=== PATIENT | male | born 1955 | race Caucasian/White ===

== ENCOUNTER 2017-02-08 07:01 | Day surgery (SDC) | payer BC ==
[2017-02-08] MEDS ORDERED: Lactated Ringers 1,000 ML IV SCH (07:45)
[2017-02-08] MEDS ORDERED: Propofol 200 MG/20 ML SDV ONE (08:54)
[2017-02-08] MEDS ORDERED: Midazolam 1 MG/ML 2 ML SDV ONE (08:54)
[2017-02-08] MEDS ORDERED: fentaNYL 100 MCG/2 ML SDV ONE (08:54)
[2017-02-08 10:15] VITALS: BP 100/61
--- NOTE | 2017-02-09 11:34 | OR ---
DATE OF PROCEDURE: 02/08/2017 PREOPERATIVE DIAGNOSIS: Change in bowel habits. POSTOPERATIVE DIAGNOSIS: Diverticulosis, change in bowel habits, etiology unknown. PROCEDURE: Colonoscopy to the cecum. ANESTHESIA: IV anesthesia with monitored anesthesia care. INDICATIONS: This 61-year-old white male is referred for a colonoscopy because of a change in his bowel habits. He says his last colonoscopic exam was done five years ago. I counseled him for the procedure including risks and alternatives, and he gave his informed consent to proceed. DESCRIPTION OF PROCEDURE: The patient was placed in the left lateral decubitus position. IV anesthesia was administered by the Anesthesia Service. Time-out was held. A rectal exam was performed, which was unremarkable. The flexible video Olympus colonoscope was introduced through his anus, up his rectum, and out his colon all the way to the cecum. En route, we saw multiple left-sided diverticula. There was no bleeding or inflammation associated with any of them. Once the cecum was reached, the scope was slowly withdrawn examining the mucosa throughout. No additional mucosal abnormalities were noted. No neoplastic lesions were seen. The scope was retroflexed in the rectum with the distal rectum appearing unremarkable. The scope was straightened and removed. He tolerated the procedure well. Henri Jackson MD /[id number]
== END 2017-02-08 10:17 | disposition home or self-care (01) ==
LOC: JP.SDS 07:01
PROVIDERS: ATTEND Surgery
DX: Z12.11 Encounter for screening for malignant neoplasm of colon (principal); K57.30 Diverticulosis of large intestine without perforation or abscess without bleeding; I10 Essential (primary) hypertension; E66.9 Obesity, unspecified; K21.9 Gastro-esophageal reflux disease without esophagitis; Z88.8 Allergy status to other drugs, medicaments and biological substances
CPT/HCPCS: 45378; J2250; J2704; J3010; J7120

== ENCOUNTER 2017-09-01 04:00 | Emergency (ER) | payer BC ==
[2017-09-01 04:24] VITALS: BP 130/74
[2017-09-01] MEDS ORDERED: Ketorolac 30 MG/ML SDV IM ONE (04:24)
[2017-09-01] MEDS ORDERED: Ciprofloxacin 500 MG Tab PO ONE (05:23)
[2017-09-01] MEDS ORDERED: metroNIDAZOLE 250 MG Tab PO ONE (05:23)
--- NOTE | 2017-09-01 05:34 | EDM.PDOC ---
ED HPI GENERAL MEDICAL PROBLEM - General Chief Complaint: Abdominal Pain Stated Complaint: PAIN Time Seen by Provider: 09/01/17 05:10 Source of Information: Reports: Patient, Old Records History Limitations: Reports: No Limitations - History of Present Illness INITIAL COMMENTS - FREE TEXT/NARRATIVE: 62 yo male here with LLQ abdominal pain that began within the last 12 hrs. No fever. Pain worse with movement. Has a pHx of diverticulitis. Onset Date: 08/31/17 Duration: Hour(s):, Getting Worse Location: Reports: Abdomen Quality: Reports: Ache Severity: Moderate Improves with: Reports: None Worsens with: Reports: Other (time) Context: Reports: Other (Hx of diverticulitis) Associated Symptoms: Reports: No Other Symptoms Treatments HOT OILER: Reports: Other (see below) (none) LLQ pain Pain Score (Numeric/FACES): 5 - Related Data Allergies Allergy/AdvReac Type Severity Reaction Status Date / Time guaifenesin Allergy Vomiting Verified 09/01/17 04:09 hylan G-F 20 [From [facility] [employer]] Allergy Paralysis Verified 09/01/17 04:09 oxycodone Allergy Change Verified 09/01/17 04:09 Mental Status Home Meds: Home Meds Ibuprofen 400 mg PO BID PRN 02/06/17 [History] Sildenafil Citrate [Sildenafil] 25 mg PO DAILY PRN 02/06/17 [History] Sodium Fluoride [Prevident] 1 applic TOP BEDTIME 02/06/17 [History] Tamsulosin [Tamsulosin 24 Hr] 0.8 mg PO DAILY 02/06/17 [History] Terbinafine [LamISIL] 250 mg PO DAILY 02/06/17 [History] amLODIPine [Norvasc] 10 mg PO DAILY 02/06/17 [History] Acetaminophen/HYDROcodone [[place] 325-5 MG] 1 - 2 tab PO Q6H PRN #14 tab [Rx] Ciprofloxacin [Ciprofloxacin HCl] 500 mg PO BID #19 tab 09/01/17 [Rx] metroNIDAZOLE [Flagyl] 500 mg PO TID #29 tablet 09/01/17 [Rx] Past Medical History HEENT History: Reports: Impaired Vision Cardiovascular History: Reports: Hypertension Gastrointestinal History: Reports: None Genitourinary History: Reports: BPH Musculoskeletal History: Reports: None Endocrine/Metabolic History: Reports: Obesity/BMI 30+ - Infectious Disease History Infectious Disease History: Reports: Chicken Pox - Past Surgical History GI Surgical History: Reports: Colonoscopy Male Surgical History: Reports: Other (See Below) Other Male Surgeries/Procedures: polyp removed from bladder Musculoskeletal Surgical History: Reports: Knee Replacement Social & Family History - Tobacco Use Smoking Status *Q: Never Smoker - Caffeine Use Caffeine Use: Reports: Soda - Recreational Drug Use Recreational Drug Use: No ED ROS GENERAL - Review of Systems Review Of Systems: See Below Constitutional: Reports: No Symptoms HEENT: Reports: No Symptoms Respiratory: Reports: No Symptoms Cardiovascular: Reports: No Symptoms GI/Abdominal: Reports: Abdominal Pain, Decreased Appetite. Denies: Black Stool , Bloody Stool, Constipation, Diarrhea, Distension, Hematemesis, Hematochezia, Melena, Nausea, Vomiting : Reports: No Symptoms Musculoskeletal: Reports: No Symptoms Skin: Reports: No Symptoms Neurological: Reports: No Symptoms ED EXAM, GI/ABD - Physical Exam Exam: See Below Exam Limited By: No Limitations General Appearance: Alert, WD/WN, No Apparent Distress, Obese Eyes: Bilateral: Normal Appearance Ears: Normal External Exam, Normal Canal, Hearing Grossly Normal Nose: Normal Inspection, Normal Mucosa, No Blood Throat/Mouth: Normal Inspection, Normal Lips, Normal Teeth, Normal Oropharynx, Normal Voice, No Airway Compromise Head: Atraumatic, Normocephalic Neck: Normal Inspection, Supple, Non-Tender Respiratory/Chest: No Respiratory Distress, Lungs Clear, Normal Breath Sounds, No Accessory Muscle Use Cardiovascular: Regular Rate, Rhythm, No Edema GI/Abdominal Exam: Normal Bowel Sounds, Soft, No Distention, Guarding (mild), Rebound (mild), Tender (LLQ) (Male) Exam: No Hernia Back Exam: Normal Inspection. No: CVA Tenderness (R), CVA Tenderness (L) Extremities: Normal Inspection, Normal Range of Motion, Non-Tender, No Pedal Edema Neurological: Alert, Oriented, CN II-XII Intact, Normal Cognition, No Motor/ Sensory Deficits Psychiatric: Normal Affect, Normal Mood Skin Exam: Warm, Dry, Intact, Normal Color, No Rash Lymphatic: No Adenopathy Course - Vital Signs Last Recorded V/S: Last Vital Signs Temp 37.0 C 09/01/17 04:24 Pulse 81 09/01/17 04:24 Resp 18 09/01/17 04:24 BP 130/74 12/15/17 04:24 Pulse Ox 95 09/01/17 04:24 - Orders/Labs/Meds Labs: Laboratory Tests 09/01/17 09/01/17 Range/Units 04:58 04:58 WBC 17.2 H (4.5-11.0) K/uL RBC 5.35 (4.30-5.90) M/uL Hgb 15.7 H (12.0-15.0) g/dL Hct 47.9 (40.0-54.0) % MCV 90 (80-98) fL MCH 29 (27-31) pg MCHC 33 (32-36) % Plt Count 246 (150-400) K/uL C-Reactive Protein 3.20 H (0.0-0.3) mg/dL Meds: Medications Discontinued Medications Generic Name Dose Route Start Last Admin Trade Name Freq PRN Reason Stop Dose Admin Ciprofloxacin 500 mg 09/01/17 05:23 Ciprofloxacin Hcl PO 09/01/17 05:24 ONETIME ONE Ketorolac Tromethamine 30 mg 09/01/17 04:24 09/01/17 04:33 Toradol IM 09/01/17 04:25 30 mg ONETIME ONE Administration Metronidazole 500 mg 09/01/17 05:23 Metronidazole PO 09/01/17 05:24 ONETIME ONE Departure - Departure Time of Disposition: 05:33 Disposition: Home, Self-Care 01 Condition: Fair Clinical Impression: Diverticulitis - Discharge Information Prescriptions: Acetaminophen/HYDROcodone [[place] 325-5 MG] 1 - 2 tab PO Q6H PRN #14 tab PRN Reason: Pain Ciprofloxacin [Ciprofloxacin HCl] 500 mg PO BID #19 tab metroNIDAZOLE [Flagyl] 500 mg PO TID #29 tablet Referrals: PCP,None [Primary Care Provider] - Forms: ED Department Discharge Additional Instructions: Take ciprofloxacin and metronidazole as directed until gone. Use ibuprofen and/ or acetaminophen as needed for pain relief. Substitute [place] for the acetaminophen if additional relief is needed. Recheck in the clinic early next week, return if worse in the interim. Eat a light diet.
== END 2017-09-01 05:43 | disposition home or self-care (01) ==
LOC: JP.ED 04:00
DX: K57.92 Diverticulitis of intestine, part unspecified, without perforation or abscess without bleeding (principal); I10 Essential (primary) hypertension; Z79.899 Other long term (current) drug therapy; Z88.6 Allergy status to analgesic agent; Z88.8 Allergy status to other drugs, medicaments and biological substances
CPT/HCPCS: 36415; 85027; 86140; 96372; 99284; A9270; J1885

== ENCOUNTER 2022-03-04 13:28 | Emergency (ER) | payer BC ==
[2022-03-04] MEDS ORDERED: Ondansetron 4 MG/2 ML SDV IVPUSH ONE (14:22)
[2022-03-04] MEDS ORDERED: Sodium Chloride 0.9% 10 ML Syringe FLUSH PRN (14:22)
[2022-03-04 14:41] LABS: CORONAVIRUS COVID-19 NAA NEGATIVE (NEGATIVE)
[2022-03-04 14:42] VITALS: PULSE 58
[2022-03-04 15:03] LABS: ESTIMATED GFR 94 mL/min (>60); TROPONIN I HIGH SENSITIVITY 22.4 pg/mL (<=60.3)
[2022-03-04] MEDS ORDERED: Ketorolac 30 MG/ML SDV IVPUSH ONE (15:28)
[2022-03-04] MEDS ORDERED: Sodium Chloride 0.9% 75 ML IV SCH (15:45)
[2022-03-04] MEDS ORDERED: Iopamidol 612 MG/ML 100 ML Bottle IV SCH (15:45)
[2022-03-04 16:11] VITALS: BP 153/84
[2022-03-04] MEDS ORDERED: Sodium Chloride 0.9% 1,000 ML IV SCH (16:15)
== END 2022-03-04 17:48 | disposition home or self-care (01) ==
LOC: JP.ED 13:28
DX: B34.9 Viral infection, unspecified (principal); I10 Essential (primary) hypertension; E78.00 Pure hypercholesterolemia, unspecified; E66.9 Obesity, unspecified; Z68.36 Body mass index [BMI] 36.0-36.9, adult; Z20.822 Contact with and (suspected) exposure to COVID-19; Z88.8 Allergy status to other drugs, medicaments and biological substances
CPT/HCPCS: 0241U; 36415; 71046; 71260; 80053; 81001; 82150; 83690; 83880; 84484; 85025; 85379; 93005; 93010; 96361; 96374; 96375; 99284; J1885; J2405; J3490; J7030

== ENCOUNTER 2022-05-06 07:01 | Day surgery (SDC) | payer BC ==
[~2022-05-06 07:01] MED LIST: Bupivacaine 0.5% 50 ML MDV ONE; Lidocaine 1% with EPINEPHrine 1:100,000 50 ML MDV ONE
[2022-05-06] MEDS ORDERED: Acetaminophen 500 MG Tab PO ONE (07:30)
[2022-05-06] MEDS ORDERED: Dextrose 5%-Lactated Ringers 1,000 ML IV SCH (07:45)
[2022-05-06] MEDS ORDERED: fentaNYL 250 MCG/5 ML SDV ONE ×2 (08:15→10:35)
[2022-05-06] MEDS ORDERED: cefOXitin 2 GM in Sodium Chloride 0.9% 50 ML IV ONE (08:45)
[2022-05-06] MEDS ORDERED: Succinylcholine 200 MG/10 ML MDV ONE (08:46)
[2022-05-06] MEDS ORDERED: Glycopyrrolate 0.2 MG/ML 5 ML MDV ONE (08:46)
[2022-05-06] MEDS ORDERED: Neostigmine Methylsulfate 1 MG/ML 5 ML Syringe ONE (08:46)
[2022-05-06] MEDS ORDERED: Ondansetron 4 MG/2 ML SDV ONE (08:46)
[2022-05-06] MEDS ORDERED: Rocuronium 50 MG/5 ML Vial ONE (08:46)
[2022-05-06] MEDS ORDERED: Propofol 200 MG/20 ML SDV ONE (08:46)
[2022-05-06] MEDS ORDERED: Dexamethasone 4 MG/ML SDV ONE (08:46)
[2022-05-06] MEDS ORDERED: Ketamine 500 MG/5 ML MDV IV SCH (09:00)
[2022-05-06] MEDS ORDERED: Ketamine 20 MG in Sodium Chloride 0.9% 19.8 ML IV SCH (09:00)
[2022-05-06] MEDS ORDERED: Meropenem 500 MG SDV ONE (11:25)
[2022-05-06] MEDS ORDERED: Ketorolac 30 MG/ML SDV ONE (11:27)
[2022-05-06] MEDS ORDERED: HYDROmorphone 2 MG Tab PO PRN (15:08)
[2022-05-06 15:36] VITALS: BP 116/65; PULSE 65
[2022-05-06] MEDS ORDERED: Ondansetron 4 MG Tab.DIS PO ONE (15:49)
== END 2022-05-06 16:33 | disposition home or self-care (01) ==
LOC: JP.SDS 07:01
PROVIDERS: ATTEND Surgery
DX: K80.10 Calculus of gallbladder with chronic cholecystitis without obstruction (principal); K42.0 Umbilical hernia with obstruction, without gangrene; I10 Essential (primary) hypertension; M17.0 Bilateral primary osteoarthritis of knee; E78.5 Hyperlipidemia, unspecified; E66.01 Morbid (severe) obesity due to excess calories; K21.9 Gastro-esophageal reflux disease without esophagitis; Z98.890 Other specified postprocedural states; Z96.643 Presence of artificial hip joint, bilateral; Z88.6 Allergy status to analgesic agent; Z88.8 Allergy status to other drugs, medicaments and biological substances; Z79.02 Long term (current) use of antithrombotics/antiplatelets; Z79.899 Other long term (current) drug therapy; Z79.82 Long term (current) use of aspirin; Z01.818 Encounter for other preprocedural examination; Z79.810 Long term (current) use of selective estrogen receptor modulators (SERMs)
CPT/HCPCS: 36415; 47562; 49020; 83880; 87070; 87075; 87077; 87186; 87205; A9270; J0171; J0330; J0694; J1100; J1885; J2185; J2405; J2704; J2710; J2795; J3010; J3490; J7121; Q0162